=== PATIENT | female | born 1960 | race Caucasian/White ===

== ENCOUNTER → 2017-10-23 | Outpatient (CLI) | payer OTHER, BC ==
[~2017-10-23] MED LIST: ACETAMINOPHEN325 M1; HYDROCODON-ACE1 EAC7 PO; IBUPROFEN; IBUPROFEN 200200 M1 PO; NORCO 5-325 TA1 EACH PO; PRILOSEC 20 MG20 MG PO; XARELTO10 MG PO
== END ==
LOC: RAD 10:23
DX: M47.897 Other spondylosis, lumbosacral region (principal)